=== PATIENT | male | born 1965 | race Caucasian/White ===

== ENCOUNTER 2018-04-06 10:33 | Inpatient (IN) ==
[2018-04-11 11:02] VITALS: BP 105/66
== END 2018-04-11 13:30 | disposition home or self-care (01) | DRG 378 ==
LOC: N.ED 10:33 → SUATTDRO 11:50 → N.EDINP 12:49 → N.3E 13:20
PROVIDERS: ADMIT Hospitalist; ATTEND Internal Medicine

== ENCOUNTER 2018-05-05 08:25 | Inpatient (IN) ==
[2018-05-05 09:36] LABS: Basophils % 0.4 % (0.0-0.8); Eosinophils # 0.1 10*3/uL (0.0-0.87); Hematocrit 18.8 VOL% (42.0-52.0); Immature Granulocytes % 0.4 %; Immature Granulocytes Absolute 0.01 #; Lymphocytes # 0.6 10*3/uL (1.4-4.0); Lymphocytes % 22.8 % (21.2-54.2); Mean Corpuscular HGB Conc 28.7 GM/DL (32-36); Mean Corpuscular Hemoglobin 24 PG (27-34); Mean Corpuscular Volume 82.5 FL (87-102); Mean Platelet Volume 12.7 FL (9.6-12.0); Monocytes # 0.4 10*3/uL (0.11-0.8); Monocytes % 12.9 % (1.7-12.7); Neutrophils # 1.6 10*3/uL (1.4-7.4); Neutrophils % 59.5 % (38.7-73.9); Platelet Count 84 T/CUMM (130-400); Red Blood Count 2.28 MC/CUMM (3.8-5.5); Red Cell Distribution Width 17.1 % (9.3-17.3); White Blood Count 2.7 T/CUMM (4-12)
[2018-05-05 09:41] LABS: Hemoglobin 5.4 GM/DL (14.0-18.0); INR 1.1; PT Patient Result 11.4 SECS; Partial Thromboplastin Time 25.6 SECS (0-40)
[2018-05-05 09:51] LABS: Troponin I Only < 0.015 NG/ML (0.00-0.045)
[2018-05-05 09:57] LABS: Platelet Estimate Decreased
[2018-05-05 09:57] LABS: Bilirubin,Total 0.4 MG/DL (0.2-1.0); Calcium 8.5 MG/DL (8.5-10.1); Osmolality,Calculated 282.4 MOS/KG (273-304); Potassium 3.9 MMOL/L (3.5-5.1); Total Protein 6.1 G/DL (6.4-8.3)
[2018-05-05 09:58] LABS: Anisocytosis 1+; Basophilic Stippling Slight; Polychromasia Slight
[2018-05-05] MEDS ORDERED: SODIUM CHLORIDE 0.9% 1,000 ML IV PRN ×2 (10:08→19:54)
[2018-05-05 10:26] LABS: % Iron Saturation 4.5 % (18-50)
[2018-05-05 10:28] LABS: Lactic Acid 1.6 MMOL/L (0.4-2.0)
[2018-05-05] MEDS ORDERED: DEXTROSE 50% 25 GM/50 ML VIAL IV PRN (10:43)
[2018-05-05] MEDS ORDERED: ACETAMINOPHEN 325 MG TABLET PO PRN (10:43)
[2018-05-05] MEDS ORDERED: GLUCAGON 1 MG VIAL IM PRN (10:43)
[2018-05-05] MEDS ORDERED: ONDANSETRON 4 MG/2 ML VIAL IV PRN (10:43)
[2018-05-05] MEDS ORDERED: ERGOCALCIFEROL 50,000 UNIT CAPSULE PO SCH (11:00)
[2018-05-05] MEDS ORDERED: CYANOCOBALAMIN 1000 MCG/1 ML VIAL IM SCH (11:00)
[2018-05-05] MEDS: INSULIN REGULAR 100 UNIT/ML SUBCUT SCH ×3 (13:38→20:37)
[2018-05-05] MEDS: PANTOPRAZOLE 40 MG VIAL IV SCH (15:38)
[2018-05-05 19:26] LABS: Hematocrit 19.5 VOL% (42.0-52.0)
[2018-05-05 19:32] LABS: Hemoglobin 5.8 GM/DL (14.0-18.0)
[2018-05-05] MEDS: MAGNESIUM CHLORIDE 64 MG TABLET PO SCH (20:33)
[2018-05-05] MEDS: ATORVASTATIN 20 MG TABLET PO SCH (20:33)
[2018-05-06 04:56] LABS: Basophils % 0.4 % (0.0-0.8); Eosinophils # 0.1 10*3/uL (0.0-0.87); Eosinophils % 4.3 % (0.00-10.9); Hematocrit 21.5 VOL% (42.0-52.0); Hemoglobin 6.5 GM/DL (14.0-18.0); Immature Granulocytes % 0.4 %; Immature Granulocytes Absolute 0.01 #; Lymphocytes # 0.6 10*3/uL (1.4-4.0); Lymphocytes % 22.8 % (21.2-54.2); Mean Corpuscular HGB Conc 30.2 GM/DL (32-36); Mean Corpuscular Hemoglobin 25 PG (27-34); Mean Corpuscular Volume 82.4 FL (87-102); Mean Platelet Volume 11.4 FL (9.6-12.0); Monocytes # 0.3 10*3/uL (0.11-0.8); Monocytes % 12.6 % (1.7-12.7); Neutrophils # 1.5 10*3/uL (1.4-7.4); Neutrophils % 59.5 % (38.7-73.9); Platelet Count 69 T/CUMM (130-400); Red Blood Count 2.61 MC/CUMM (3.8-5.5); Red Cell Distribution Width 16.3 % (9.3-17.3); White Blood Count 2.5 T/CUMM (4-12)
[2018-05-06 05:16] LABS: Calcium 8.4 MG/DL (8.5-10.1); Potassium 3.9 MMOL/L (3.5-5.1)
[2018-05-06 05:20] LABS: Hypochromasia 1+; Microcytosis 1+; Ovalocytes Few
[2018-05-06 05:21] LABS: Platelet Estimate Decreased
[2018-05-06] MEDS: LEVOTHYROXINE 200 MCG TABLET PO SCH (06:20)
[2018-05-06] MEDS ORDERED: LOSARTAN 50 MG TABLET PO SCH (09:00)
[2018-05-06] MEDS ORDERED: SODIUM CHLORIDE 0.9% 1,000 ML IV PRN (09:07)
[2018-05-06] MEDS: PANTOPRAZOLE 40 MG VIAL IV SCH (10:10)
[2018-05-06] MEDS ORDERED: GLUCAGON 1 MG VIAL IM PRN (10:47)
[2018-05-06] MEDS ORDERED: DEXTROSE 50% 25 GM/50 ML VIAL IV PRN (10:47)
[2018-05-06] MEDS: FEXOFENADINE 180 MG TABLET PO SCH (12:50)
[2018-05-06] MEDS: MAGNESIUM CHLORIDE 64 MG TABLET PO SCH ×2 (12:51→20:44)
[2018-05-06] MEDS: POTASSIUM CHLORIDE 20 MEQ TABLET PO SCH (12:51)
[2018-05-06] MEDS: metFORMIN 500 MG TABLET PO SCH ×2 (12:51→20:44)
[2018-05-06] MEDS: FUROSEMIDE 40 MG TABLET PO SCH (12:51)
[2018-05-06] MEDS: ALLOPURINOL 300 MG TABLET PO SCH (12:52)
[2018-05-06] MEDS: METOPROLOL SUCCINATE XL 25 MG TABLET PO SCH (12:52)
[2018-05-06] MEDS: ASCORBIC ACID 500 MG TABLET PO SCH (12:52)
[2018-05-06] MEDS: INSULIN REGULAR 100 UNIT/ML SUBCUT SCH ×4 (12:52→20:47)
[2018-05-06 19:04] LABS: Hematocrit 24.6 VOL% (42.0-52.0); Hemoglobin 7.4 GM/DL (14.0-18.0)
[2018-05-06] MEDS: ATORVASTATIN 20 MG TABLET PO SCH (20:44)
[2018-05-06] MEDS ORDERED: INSULIN GLARGINE 100 UNIT/ML SUBCUT SCH (21:00)
[2018-05-07 03:01] LABS: Hematocrit 26.4 VOL% (42.0-52.0); Hemoglobin 8.2 GM/DL (14.0-18.0)
[2018-05-07] MEDS: LEVOTHYROXINE 200 MCG TABLET PO SCH (06:03)
[2018-05-07 06:10] LABS: Basophils % 0.7 % (0.0-0.8); Eosinophils # 0.1 10*3/uL (0.0-0.87); Eosinophils % 4.8 % (0.00-10.9); Hematocrit 26.9 VOL% (42.0-52.0); Hemoglobin 8.2 GM/DL (14.0-18.0); Lymphocytes # 0.6 10*3/uL (1.4-4.0); Lymphocytes % 21.4 % (21.2-54.2); Mean Corpuscular HGB Conc 30.5 GM/DL (32-36); Mean Corpuscular Hemoglobin 26 PG (27-34); Mean Corpuscular Volume 84.1 FL (87-102); Monocytes # 0.4 10*3/uL (0.11-0.8); Monocytes % 13.3 % (1.7-12.7); Neutrophils # 1.8 10*3/uL (1.4-7.4); Neutrophils % 59.8 % (38.7-73.9); Platelet Count 66 T/CUMM (130-400); Red Cell Distribution Width 16.2 % (9.3-17.3); White Blood Count 2.9 T/CUMM (4-12)
[2018-05-07 06:29] LABS: Hypochromasia 1+; Ovalocytes Slight; Platelet Estimate Decreased
[2018-05-07 06:30] LABS: Microcytosis Slight
[2018-05-07 06:36] LABS: Calcium 8.4 MG/DL (8.5-10.1); Osmolality,Calculated 283.1 MOS/KG (273-304)
[2018-05-07] MEDS: INSULIN REGULAR 100 UNIT/ML SUBCUT SCH ×4 (09:56→22:05)
[2018-05-07] MEDS ORDERED: LOSARTAN 25 MG TABLET PO SCH (11:30)
[2018-05-07] MEDS: FUROSEMIDE 40 MG TABLET PO SCH (11:39)
[2018-05-07] MEDS: ASCORBIC ACID 500 MG TABLET PO SCH (11:40)
[2018-05-07] MEDS: MAGNESIUM CHLORIDE 64 MG TABLET PO SCH ×2 (11:41→22:12)
[2018-05-07] MEDS: POTASSIUM CHLORIDE 20 MEQ TABLET PO SCH (11:41)
[2018-05-07] MEDS: METOPROLOL SUCCINATE XL 25 MG TABLET PO SCH (11:41)
[2018-05-07] MEDS: FEXOFENADINE 180 MG TABLET PO SCH (11:41)
[2018-05-07] MEDS: ALLOPURINOL 300 MG TABLET PO SCH (11:41)
[2018-05-07] MEDS: PANTOPRAZOLE 40 MG VIAL IV SCH (11:46)
[2018-05-07] MEDS: metFORMIN 500 MG TABLET PO SCH ×2 (11:46→22:12)
[2018-05-07 12:51] LABS: Hematocrit 31.7 VOL% (42.0-52.0); Hemoglobin 9.9 GM/DL (14.0-18.0)
[2018-05-07] MEDS ORDERED: LIOTHYRONINE SODIUM 5 MCG PO SCH (21:00)
[2018-05-07] MEDS ORDERED: INSULIN DEGLUDEC 120 UNIT SUBCUT SCH (21:00)
[2018-05-07] MEDS: ATORVASTATIN 20 MG TABLET PO SCH (22:13)
[2018-05-08] MEDS: LEVOTHYROXINE 200 MCG TABLET PO SCH (06:06)
[2018-05-08] MEDS: INSULIN REGULAR 100 UNIT/ML SUBCUT SCH ×2 (08:54→13:01)
[2018-05-08] MEDS: metFORMIN 500 MG TABLET PO SCH (08:54)
[2018-05-08] MEDS: MAGNESIUM CHLORIDE 64 MG TABLET PO SCH (08:54)
[2018-05-08] MEDS: FUROSEMIDE 40 MG TABLET PO SCH (08:55)
[2018-05-08] MEDS: ASCORBIC ACID 500 MG TABLET PO SCH (08:55)
[2018-05-08] MEDS: FEXOFENADINE 180 MG TABLET PO SCH (08:55)
[2018-05-08] MEDS: POTASSIUM CHLORIDE 20 MEQ TABLET PO SCH (08:58)
[2018-05-08] MEDS: ALLOPURINOL 300 MG TABLET PO SCH (08:58)
[2018-05-08] MEDS: PANTOPRAZOLE 40 MG VIAL IV SCH (08:58)
[2018-05-08 11:48] VITALS: BP 116/55
== END 2018-05-08 12:30 | disposition home or self-care (01) | DRG 378 ==
LOC: N.ED 08:25 → N.2E 10:43 → SUATTDRO 10:43 → N.2E 12:36
PROVIDERS: ADMIT Hospitalist; ATTEND Internal Medicine

== ENCOUNTER 2018-05-27 02:18 | Inpatient (IN) ==
[2018-05-27 03:20] LABS: Basophils % 0.4 % (0.0-0.8); Eosinophils # 0.1 10*3/uL (0.0-0.87); Eosinophils % 5.1 % (0.00-10.9); Hematocrit 22.7 VOL% (42.0-52.0); Lymphocytes # 0.6 10*3/uL (1.4-4.0); Mean Corpuscular HGB Conc 30.8 GM/DL (32-36); Mean Corpuscular Hemoglobin 26 PG (27-34); Mean Corpuscular Volume 82.8 FL (87-102); Monocytes # 0.4 10*3/uL (0.11-0.8); Monocytes % 14.5 % (1.7-12.7); Neutrophils # 1.5 10*3/uL (1.4-7.4); Red Blood Count 2.74 MC/CUMM (3.8-5.5); Red Cell Distribution Width 18.4 % (9.3-17.3); White Blood Count 2.6 T/CUMM (4-12)
[2018-05-27 03:22] LABS: Platelet Count 82 T/CUMM (130-400)
[2018-05-27] MEDS ORDERED: PANTOPRAZOLE INJ 80 MG in SODIUM CHLORIDE 0.9% 100 ML IV ONE (03:31)
[2018-05-27 03:37] LABS: Albumin 3.3 G/DL (3.4-5.0); Bilirubin,Total 0.6 MG/DL (0.2-1.0); Calcium 8.5 MG/DL (8.5-10.1); Total Protein 5.9 G/DL (6.4-8.3)
[2018-05-27] MEDS ORDERED: PANTOPRAZOLE 40 MG VIAL IV ONE (04:32)
[2018-05-27 04:47] LABS: Hypochromasia 1+; Microcytosis Slight; Ovalocytes Slight; Platelet Estimate Decreased
[2018-05-27] MEDS: PANTOPRAZOLE INJ 200 MG in SODIUM CHLORIDE 0.9% 250 ML IV SCH (05:38)
[2018-05-27] MEDS ORDERED: GLUCAGON 1 MG VIAL IM PRN (06:05)
[2018-05-27] MEDS ORDERED: ONDANSETRON 4 MG/2 ML VIAL IV PRN (06:05)
[2018-05-27] MEDS ORDERED: DEXTROSE 50% 25 GM/50 ML VIAL IV PRN (06:05)
[2018-05-27] MEDS ORDERED: SODIUM CHLORIDE 0.9% 1,000 ML IV PRN ×2 (06:05→15:47)
[2018-05-27] MEDS: INSULIN LISPRO 100 UNIT/ML SUBCUT SCH ×4 (08:37→20:54)
[2018-05-27 15:22] LABS: Hemoglobin 7.4 GM/DL (14.0-18.0)
[2018-05-27] MEDS: ATORVASTATIN 20 MG TABLET PO SCH (20:53)
[2018-05-27] MEDS ORDERED: LIOTHYRONINE SODIUM 5 MCG PO SCH (21:00)
[2018-05-28] MEDS: PANTOPRAZOLE INJ 200 MG in SODIUM CHLORIDE 0.9% 250 ML IV SCH (04:26)
[2018-05-28] MEDS: MAGNESIUM CHLORIDE 64 MG TABLET PO SCH ×3 (04:26→21:59)
[2018-05-28 04:42] LABS: Basophils % 0.3 % (0.0-0.8); Eosinophils # 0.2 10*3/uL (0.0-0.87); Eosinophils % 5.7 % (0.00-10.9); Hematocrit 27.1 VOL% (42.0-52.0); Hemoglobin 8.4 GM/DL (14.0-18.0); Immature Granulocytes % 0.3 %; Immature Granulocytes Absolute 0.01 #; Lymphocytes # 0.7 10*3/uL (1.4-4.0); Lymphocytes % 21.9 % (21.2-54.2); Mean Corpuscular Hemoglobin 26 PG (27-34); Mean Corpuscular Volume 84.2 FL (87-102); Mean Platelet Volume 11.4 FL (9.6-12.0); Monocytes # 0.4 10*3/uL (0.11-0.8); Monocytes % 14.1 % (1.7-12.7); Neutrophils # 1.7 10*3/uL (1.4-7.4); Neutrophils % 57.7 % (38.7-73.9); Red Blood Count 3.22 MC/CUMM (3.8-5.5); Red Cell Distribution Width 17.4 % (9.3-17.3)
[2018-05-28 04:50] LABS: Platelet Count 62 T/CUMM (130-400)
[2018-05-28 05:18] LABS: Calcium 8.5 MG/DL (8.5-10.1); Osmolality,Calculated 287.7 MOS/KG (273-304); Potassium 3.9 MMOL/L (3.5-5.1); Thyroid Stimulating Hormone 1.2 uIU/ml (0.358-3.74)
[2018-05-28 05:23] LABS: Hypochromasia 1+; Microcytosis 1+; Ovalocytes Slight; Platelet Estimate Decreased
[2018-05-28] MEDS ORDERED: ERGOCALCIFEROL 50,000 UNIT CAPSULE PO SCH (09:00)
[2018-05-28] MEDS: INSULIN LISPRO 100 UNIT/ML SUBCUT SCH ×4 (09:43→22:00)
[2018-05-28] MEDS ORDERED: PROPOFOL 200 MG/20 ML VIAL IV ONE (10:00)
[2018-05-28] MEDS ORDERED: LIDOCAINE 2% 5 ML VIAL ONE (10:00)
[2018-05-28] MEDS: LEVOTHYROXINE 200 MCG TABLET PO SCH (14:03)
[2018-05-28] MEDS: ASCORBIC ACID 500 MG TABLET PO SCH (14:03)
[2018-05-28] MEDS: ALLOPURINOL 300 MG TABLET PO SCH (14:03)
[2018-05-28] MEDS: POTASSIUM CHLORIDE 20 MEQ TABLET PO SCH (14:03)
[2018-05-28] MEDS: FERROUS SULFATE 325 MG TABLET PO SCH (14:04)
[2018-05-28] MEDS: FUROSEMIDE 40 MG TABLET PO SCH (14:05)
[2018-05-28] MEDS ORDERED: ACETAMINOPHEN 325 MG TABLET PO PRN (14:10)
[2018-05-28 15:22] LABS: Hemoglobin 9.3 GM/DL (14.0-18.0)
[2018-05-28] MEDS: ATORVASTATIN 20 MG TABLET PO SCH (21:59)
[2018-05-29 06:45] LABS: Basophils % 0.3 % (0.0-0.8); Eosinophils # 0.1 10*3/uL (0.0-0.87); Eosinophils % 4.1 % (0.00-10.9); Hematocrit 27.1 VOL% (42.0-52.0); Hemoglobin 8.3 GM/DL (14.0-18.0); Immature Granulocytes % 0.3 %; Immature Granulocytes Absolute 0.01 #; Lymphocytes # 0.5 10*3/uL (1.4-4.0); Lymphocytes % 16.1 % (21.2-54.2); Mean Corpuscular HGB Conc 30.6 GM/DL (32-36); Mean Corpuscular Hemoglobin 26 PG (27-34); Mean Corpuscular Volume 86.3 FL (87-102); Mean Platelet Volume 11.2 FL (9.6-12.0); Monocytes # 0.5 10*3/uL (0.11-0.8); Monocytes % 14.2 % (1.7-12.7); Neutrophils # 2.1 10*3/uL (1.4-7.4); Platelet Count 67 T/CUMM (130-400); Red Blood Count 3.14 MC/CUMM (3.8-5.5); Red Cell Distribution Width 17.6 % (9.3-17.3); White Blood Count 3.2 T/CUMM (4-12)
[2018-05-29 07:13] LABS: Hypochromasia 1+; Platelet Estimate Decreased
[2018-05-29 07:14] LABS: Microcytosis 1+
[2018-05-29] MEDS: POTASSIUM CHLORIDE 20 MEQ TABLET PO SCH (09:27)
[2018-05-29] MEDS: ASCORBIC ACID 500 MG TABLET PO SCH (09:27)
[2018-05-29] MEDS: FUROSEMIDE 40 MG TABLET PO SCH (09:28)
[2018-05-29] MEDS: ALLOPURINOL 300 MG TABLET PO SCH (09:28)
[2018-05-29] MEDS: LEVOTHYROXINE 200 MCG TABLET PO SCH (09:28)
[2018-05-29] MEDS: FERROUS SULFATE 325 MG TABLET PO SCH (09:28)
[2018-05-29] MEDS: MAGNESIUM CHLORIDE 64 MG TABLET PO SCH (09:28)
[2018-05-29] MEDS: INSULIN LISPRO 100 UNIT/ML SUBCUT SCH ×2 (11:16→11:17)
[2018-05-29 12:52] VITALS: BP 125/68
[2018-06-03] MEDS ORDERED: CYANOCOBALAMIN 1000 MCG/1 ML VIAL IM SCH (09:00)
== END 2018-05-29 13:48 | disposition home or self-care (01) | DRG 378 ==
LOC: N.ED 02:18 → N.EDINP 05:25 → N.5E 05:47
PROVIDERS: ADMIT Internal Medicine; ATTEND Internal Medicine

== ENCOUNTER 2018-06-22 10:36 | Inpatient (IN) ==
[2018-06-22 11:50] LABS: Basophils % 0.3 % (0.0-0.8); Eosinophils # 0.1 10*3/uL (0.0-0.87); Eosinophils % 3.8 % (0.00-10.9); Hematocrit 26.3 VOL% (42.0-52.0); Immature Granulocytes % 0.3 %; Immature Granulocytes Absolute 0.01 #; Lymphocytes # 0.5 10*3/uL (1.4-4.0); Lymphocytes % 17.2 % (21.2-54.2); Mean Corpuscular HGB Conc 30.4 GM/DL (32-36); Mean Corpuscular Hemoglobin 26 PG (27-34); Mean Corpuscular Volume 84.6 FL (87-102); Mean Platelet Volume 11.5 FL (9.6-12.0); Monocytes # 0.4 10*3/uL (0.11-0.8); Monocytes % 14.8 % (1.7-12.7); Neutrophils # 1.8 10*3/uL (1.4-7.4); Neutrophils % 63.6 % (38.7-73.9); Red Blood Count 3.11 MC/CUMM (3.8-5.5); Red Cell Distribution Width 17.2 % (9.3-17.3); White Blood Count 2.9 T/CUMM (4-12)
[2018-06-22 11:52] LABS: Platelet Count 67 T/CUMM (130-400)
[2018-06-22 12:00] LABS: INR 1.1; PT Patient Result 11.3 SECS
[2018-06-22 12:18] LABS: Hypochromasia 1+
[2018-06-22 12:19] LABS: Platelet Estimate Decreased
[2018-06-22 12:20] LABS: Albumin 3.3 G/DL (3.4-5.0); Bilirubin,Total 0.5 MG/DL (0.2-1.0); Calcium 8.2 MG/DL (8.5-10.1); Potassium 4.3 MMOL/L (3.5-5.1); Total Protein 6.5 G/DL (6.4-8.3)
[2018-06-22] MEDS ORDERED: GLUCAGON 1 MG VIAL IM PRN (15:01)
[2018-06-22] MEDS ORDERED: DEXTROSE 50% 25 GM/50 ML VIAL IV PRN (15:01)
[2018-06-22] MEDS: INSULIN LISPRO 100 UNIT/ML SUBCUT SCH ×2 (16:16→22:41)
[2018-06-22 19:36] LABS: Apearance,Urine CLEAR (Clear); Bilirubin,Urine Negative (Negative); Blood, Urine Negative (Negative); Glucose,Urine (UA) Negative (Negative); Ketones,Urine Negative (Negative); Mucus,Urine Occasional /LPF (Occasional); Nitrite,Urine Negative (Negative); Protein,Urine Negative; RBC,Urine <1 /HPF (0-4); Urine Color Yellow (Yellow); Urine Specific Gravity 1.016 (1.001-1.035); Urine Urobilinogen < 2.0 EU/DL (0.2-1.0); WBC,Urine <1 /HPF (0-6)
[2018-06-23 05:21] LABS: Basophils % 0.9 % (0.0-0.8); Eosinophils # 0.1 10*3/uL (0.0-0.87); Eosinophils % 5.9 % (0.00-10.9); Hematocrit 25.8 VOL% (42.0-52.0); Hemoglobin 7.7 GM/DL (14.0-18.0); Immature Granulocytes % 0.5 %; Immature Granulocytes Absolute 0.01 #; Lymphocytes # 0.5 10*3/uL (1.4-4.0); Mean Corpuscular HGB Conc 29.8 GM/DL (32-36); Mean Corpuscular Hemoglobin 26 PG (27-34); Mean Corpuscular Volume 85.7 FL (87-102); Mean Platelet Volume 11.5 FL (9.6-12.0); Monocytes # 0.3 10*3/uL (0.11-0.8); Monocytes % 12.3 % (1.7-12.7); Neutrophils # 1.3 10*3/uL (1.4-7.4); Neutrophils % 59.4 % (38.7-73.9); Platelet Count 61 T/CUMM (130-400); Red Blood Count 3.01 MC/CUMM (3.8-5.5); Red Cell Distribution Width 17.4 % (9.3-17.3); White Blood Count 2.2 T/CUMM (4-12)
[2018-06-23 05:42] LABS: Calcium 8.4 MG/DL (8.5-10.1); Osmolality,Calculated 287.8 MOS/KG (273-304); Potassium 3.9 MMOL/L (3.5-5.1)
[2018-06-23 05:46] LABS: Band Neutrophils 4 % (0-10); Eosinophils 6 % (0-10); Hypochromasia 2+; Lymphocytes 23 % (20-55); Metamyelocytes 1 %; Platelet Estimate Decreased; Segmented Neutrophils 58 % (50-85); Total Cells Counted 100
[2018-06-23] MEDS: INSULIN LISPRO 100 UNIT/ML SUBCUT SCH ×4 (07:30→20:40)
[2018-06-23] MEDS ORDERED: SODIUM CHLORIDE 0.9% 1,000 ML IV PRN (07:49)
[2018-06-23] MEDS ORDERED: ACETAMINOPHEN 325 MG TABLET PO PRN (09:28)
[2018-06-23] MEDS ORDERED: ERGOCALCIFEROL 50,000 UNIT CAPSULE PO SCH (09:30)
[2018-06-23] MEDS ORDERED: LIOTHYRONINE SODIUM 5 MCG PO SCH (09:30)
[2018-06-23] MEDS: ALLOPURINOL 300 MG TABLET PO SCH (10:58)
[2018-06-23] MEDS: LEVOTHYROXINE 200 MCG TABLET PO SCH (11:00)
[2018-06-23] MEDS: ASCORBIC ACID 500 MG TABLET PO SCH (11:00)
[2018-06-23] MEDS: FERROUS SULFATE 325 MG TABLET PO SCH (11:01)
[2018-06-23] MEDS: POTASSIUM CHLORIDE 20 MEQ TABLET PO SCH (11:01)
[2018-06-23] MEDS: FUROSEMIDE 40 MG TABLET PO SCH (16:32)
[2018-06-23] MEDS: PANTOPRAZOLE 40 MG VIAL IV SCH ×2 (16:32→20:41)
[2018-06-23 18:05] LABS: Hematocrit 28.7 VOL% (42.0-52.0); Hemoglobin 8.8 GM/DL (14.0-18.0)
[2018-06-23] MEDS: MAGNESIUM CHLORIDE 64 MG TABLET PO SCH (20:39)
[2018-06-23] MEDS ORDERED: ATORVASTATIN 20 MG TABLET PO SCH (21:00)
[2018-06-24 03:10] LABS: Basophils % 0.4 % (0.0-0.8); Eosinophils # 0.2 10*3/uL (0.0-0.87); Eosinophils % 6.4 % (0.00-10.9); Hematocrit 27.7 VOL% (42.0-52.0); Hemoglobin 8.6 GM/DL (14.0-18.0); Immature Granulocytes % 1.9 %; Immature Granulocytes Absolute 0.05 #; Lymphocytes # 0.6 10*3/uL (1.4-4.0); Lymphocytes % 22.6 % (21.2-54.2); Mean Corpuscular Hemoglobin 26 PG (27-34); Mean Corpuscular Volume 83.7 FL (87-102); Mean Platelet Volume 11.1 FL (9.6-12.0); Monocytes # 0.4 10*3/uL (0.11-0.8); Monocytes % 14.7 % (1.7-12.7); Neutrophils # 1.4 10*3/uL (1.4-7.4); Red Blood Count 3.31 MC/CUMM (3.8-5.5); White Blood Count 2.7 T/CUMM (4-12)
[2018-06-24 03:14] LABS: Platelet Count 69 T/CUMM (130-400)
[2018-06-24 03:17] LABS: INR 1.1; PT Patient Result 11.3 SECS
[2018-06-24 03:24] LABS: Calcium 8.1 MG/DL (8.5-10.1); Potassium 3.5 MMOL/L (3.5-5.1)
[2018-06-24 03:52] LABS: Hypochromasia 1+; Microcytosis 1+; Ovalocytes 1+; Platelet Estimate Decreased
[2018-06-24] MEDS: INSULIN LISPRO 100 UNIT/ML SUBCUT SCH ×3 (07:55→16:44)
[2018-06-24] MEDS: PANTOPRAZOLE 40 MG VIAL IV SCH (09:45)
[2018-06-24] MEDS ORDERED: PROPOFOL 200 MG/20 ML VIAL IV ONE (10:00)
[2018-06-24] MEDS ORDERED: LIDOCAINE 100 MG/5 ML SYRINGE ONE (10:00)
[2018-06-24] MEDS ORDERED: GLUCAGON 1 MG VIAL IM PRN (14:05)
[2018-06-24] MEDS ORDERED: DEXTROSE 50% 25 GM/50 ML VIAL IV PRN (14:05)
[2018-06-24] MEDS: LEVOTHYROXINE 200 MCG TABLET PO SCH (14:08)
[2018-06-24] MEDS: FUROSEMIDE 40 MG TABLET PO SCH (14:08)
[2018-06-24] MEDS: POTASSIUM CHLORIDE 20 MEQ TABLET PO SCH (14:08)
[2018-06-24] MEDS: FERROUS SULFATE 325 MG TABLET PO SCH (14:08)
[2018-06-24] MEDS: MAGNESIUM CHLORIDE 64 MG TABLET PO SCH (14:08)
[2018-06-24] MEDS: ALLOPURINOL 300 MG TABLET PO SCH (14:08)
[2018-06-24] MEDS: ASCORBIC ACID 500 MG TABLET PO SCH (14:08)
[2018-06-24] MEDS ORDERED: PNEUMOCOCCAL VACCINE (23 VALENT) 0.5 ML VIAL IM ONE (15:00)
[2018-06-24] MEDS ORDERED: HEPATITIS B PEDIATRIC (MSMed) VACCINE 0.5 ML/5 MCG VIAL IM ONE (15:00)
[2018-06-24 15:04] VITALS: BP 125/76
== END 2018-06-24 16:44 | disposition home or self-care (01) | DRG 378 ==
LOC: N.ED 10:36 → N.EDINP 13:46 → SUATTDRO 13:46 → N.2E 14:26
PROVIDERS: ADMIT Internal Medicine; ATTEND Internal Medicine

== ENCOUNTER 2018-07-29 09:33 | Inpatient (IN) ==
[2018-07-29] MEDS ORDERED: ONDANSETRON 4 MG/2 ML VIAL IV STA (09:56)
[2018-07-29] MEDS ORDERED: PANTOPRAZOLE 40 MG VIAL IV STA (09:56)
[2018-07-29 10:07] LABS: Basophils % 0.3 % (0.0-0.8); Eosinophils # 0.7 10*3/uL (0.0-0.87); Eosinophils % 17.8 % (0.00-10.9); Hematocrit 25.6 VOL% (42.0-52.0); Hemoglobin 7.5 GM/DL (14.0-18.0); Immature Granulocytes % 0.8 %; Immature Granulocytes Absolute 0.03 #; Lymphocytes # 0.6 10*3/uL (1.4-4.0); Lymphocytes % 15.9 % (21.2-54.2); Mean Corpuscular HGB Conc 29.3 GM/DL (32-36); Mean Corpuscular Hemoglobin 27 PG (27-34); Mean Corpuscular Volume 92.8 FL (87-102); Mean Platelet Volume 11.2 FL (9.6-12.0); Monocytes # 0.4 10*3/uL (0.11-0.8); Neutrophils # 2.1 10*3/uL (1.4-7.4); Neutrophils % 55.2 % (38.7-73.9); Red Blood Count 2.76 MC/CUMM (3.8-5.5); Red Cell Distribution Width 20.1 % (9.3-17.3); White Blood Count 3.7 T/CUMM (4-12)
[2018-07-29 10:08] LABS: Platelet Count 70 T/CUMM (130-400)
[2018-07-29 10:15] LABS: PT Patient Result 10.9 SECS
[2018-07-29 10:43] LABS: Albumin 3.2 G/DL (3.4-5.0); Bilirubin,Total 0.5 MG/DL (0.2-1.0); Calcium 8.1 MG/DL (8.5-10.1); Potassium 4.2 MMOL/L (3.5-5.1); Total Protein 6.2 G/DL (6.4-8.3)
[2018-07-29 11:02] LABS: Band Neutrophils 1 % (0-10); Eosinophils 15 % (0-10); Hypochromasia 1+; Lymphocytes 22 % (20-55); Microcytosis Slight; Ovalocytes Slight; Platelet Estimate Decreased; Segmented Neutrophils 54 % (50-85); Total Cells Counted 100
[2018-07-29] MEDS ORDERED: diphenhydrAMINE 50 MG/1 ML VIAL IV PRN (11:30)
[2018-07-29] MEDS ORDERED: SODIUM CHLORIDE 0.9% 1,000 ML IV PRN (11:30)
[2018-07-29] MEDS ORDERED: ACETAMINOPHEN 325 MG TABLET PO PRN (11:30)
[2018-07-29] MEDS ORDERED: MAGNESIUM SULF RIDER 2 GM in PREMIX 1 EACH IV PRN (11:31)
[2018-07-29] MEDS ORDERED: MAGNESIUM SULF RIDER 4 GM in PREMIX 1 EACH IV PRN (11:31)
[2018-07-29] MEDS ORDERED: POTASSIUM CHLORIDE RIDER 10 MEQ in PREMIX 1 EACH IV PRN (11:31)
[2018-07-29 11:59] LABS: Risk Ratio 3.32; VLDL CHOLESTEROL 41.6 MG/DL
[2018-07-29] MEDS ORDERED: PANTOPRAZOLE INJ 200 MG in SODIUM CHLORIDE 0.9% 250 ML IV SCH (12:00)
[2018-07-29 13:09] LABS: Apearance,Urine CLEAR (Clear); Bilirubin,Urine Negative (Negative); Blood, Urine Negative (Negative); Glucose,Urine (UA) Negative (Negative); Ketones,Urine Negative (Negative); Mucus,Urine Occasional /LPF (Occasional); Nitrite,Urine Negative (Negative); Protein,Urine Negative; Squamous Epithelial Cell,Urine Occasional /HPF (0-10); Urine Color Yellow (Yellow); Urine Specific Gravity 1.014 (1.001-1.035); WBC,Urine <1 /HPF (0-6)
[2018-07-29] MEDS ORDERED: DEXTROSE 50% 25 GM/50 ML VIAL IV PRN (15:49)
[2018-07-29] MEDS ORDERED: GLUCAGON 1 MG VIAL IM PRN (15:49)
[2018-07-29] MEDS ORDERED: FUROSEMIDE 40 MG/4 ML VIAL IV ONE (16:00)
[2018-07-29] MEDS: MAGNESIUM CHLORIDE 64 MG TABLET PO SCH (20:38)
[2018-07-29] MEDS: ATORVASTATIN 20 MG TABLET PO SCH (20:38)
[2018-07-29] MEDS ORDERED: LIOTHYRONINE SODIUM 5 MCG PO SCH (21:00)
[2018-07-29] MEDS ORDERED: INSULIN DEGLUDEC 110 UNIT SUBCUT SCH (21:00)
[2018-07-30 05:26] LABS: Basophils % 0.3 % (0.0-0.8); Eosinophils # 0.8 10*3/uL (0.0-0.87); Eosinophils % 21.3 % (0.00-10.9); Hematocrit 25.5 VOL% (42.0-52.0); Hemoglobin 7.6 GM/DL (14.0-18.0); Immature Granulocytes % 0.6 %; Immature Granulocytes Absolute 0.02 #; Lymphocytes # 0.6 10*3/uL (1.4-4.0); Lymphocytes % 18.2 % (21.2-54.2); Mean Corpuscular HGB Conc 29.8 GM/DL (32-36); Mean Corpuscular Hemoglobin 27 PG (27-34); Mean Corpuscular Volume 91.7 FL (87-102); Mean Platelet Volume 11.8 FL (9.6-12.0); Monocytes # 0.4 10*3/uL (0.11-0.8); Monocytes % 11.1 % (1.7-12.7); Neutrophils # 1.7 10*3/uL (1.4-7.4); Neutrophils % 48.5 % (38.7-73.9); Red Blood Count 2.78 MC/CUMM (3.8-5.5); White Blood Count 3.5 T/CUMM (4-12)
[2018-07-30 05:29] LABS: Platelet Count 67 T/CUMM (130-400)
[2018-07-30 05:52] LABS: Albumin 2.9 G/DL (3.4-5.0); Bilirubin,Total 0.5 MG/DL (0.2-1.0); Calcium 7.9 MG/DL (8.5-10.1); Osmolality,Calculated 283.1 MOS/KG (273-304); Potassium 3.5 MMOL/L (3.5-5.1); Total Protein 5.9 G/DL (6.4-8.3)
[2018-07-30 05:55] LABS: Eosinophils 24 % (0-10); Hypochromasia 1+; Lymphocytes 10 % (20-55); Ovalocytes Slight; Platelet Estimate Decreased; Segmented Neutrophils 58 % (50-85); Total Cells Counted 100
[2018-07-30 05:56] LABS: Microcytosis Slight
[2018-07-30] MEDS: LEVOTHYROXINE 200 MCG TABLET PO SCH (06:01)
[2018-07-30] MEDS ORDERED: SODIUM CHLORIDE 0.9% 1,000 ML IV PRN (07:15)
[2018-07-30] MEDS ORDERED: FUROSEMIDE 20 MG/2 ML VIAL IV PRN (07:15)
[2018-07-30] MEDS ORDERED: ACETAMINOPHEN 325 MG TABLET PO PRN (07:15)
[2018-07-30] MEDS ORDERED: diphenhydrAMINE 50 MG/1 ML VIAL IV PRN (07:15)
[2018-07-30] MEDS ORDERED: PANTOPRAZOLE 40 MG TABLET PO SCH (09:00)
[2018-07-30] MEDS: PANTOPRAZOLE 40 MG VIAL IV SCH (09:17)
[2018-07-30] MEDS: ALLOPURINOL 300 MG TABLET PO SCH (09:20)
[2018-07-30] MEDS: FUROSEMIDE 40 MG TABLET PO SCH (09:20)
[2018-07-30] MEDS: POTASSIUM CHLORIDE 20 MEQ TABLET PO SCH ×2 (09:20→21:46)
[2018-07-30] MEDS: MAGNESIUM CHLORIDE 64 MG TABLET PO SCH ×2 (09:20→21:45)
[2018-07-30] MEDS: CHOLECALCIFEROL 1,000 UNIT TABLET PO SCH (09:20)
[2018-07-30] MEDS: ASCORBIC ACID 500 MG TABLET PO SCH (11:05)
[2018-07-30 13:37] LABS: % Iron Saturation 12.7 % (18-50); Ferritin 81.6 ng/ml (26-388)
[2018-07-30] MEDS ORDERED: POTASSIUM PHOSPHATE 15 MMOL in SODIUM CHLORIDE 0.9% 100 ML IV ONE (14:00)
[2018-07-30] MEDS ORDERED: LIDOCAINE 100 MG/5 ML SYRINGE ONE (14:23)
[2018-07-30] MEDS ORDERED: PROPOFOL 200 MG/20 ML VIAL IV ONE (14:23)
[2018-07-30] MEDS ORDERED: FUROSEMIDE 20 MG/2 ML VIAL IV ONE (16:15)
[2018-07-30] MEDS: ATORVASTATIN 20 MG TABLET PO SCH (21:45)
[2018-07-31 05:54] LABS: Basophils % 0.4 % (0.0-0.8); Eosinophils # 0.9 10*3/uL (0.0-0.87); Eosinophils % 19.8 % (0.00-10.9); Hematocrit 32.3 VOL% (42.0-52.0); Immature Granulocytes % 0.6 %; Immature Granulocytes Absolute 0.03 #; Lymphocytes # 0.8 10*3/uL (1.4-4.0); Lymphocytes % 17.1 % (21.2-54.2); Mean Corpuscular Hemoglobin 29 PG (27-34); Mean Platelet Volume 10.4 FL (9.6-12.0); Monocytes # 0.5 10*3/uL (0.11-0.8); Monocytes % 10.2 % (1.7-12.7); Neutrophils # 2.4 10*3/uL (1.4-7.4); Neutrophils % 51.9 % (38.7-73.9); Platelet Count 73 T/CUMM (130-400); Red Cell Distribution Width 19.8 % (9.3-17.3)
[2018-07-31 05:58] LABS: Red Blood Count 3.51 MC/CUMM (3.8-5.5); White Blood Count 4.7 T/CUMM (4-12)
[2018-07-31] MEDS: LEVOTHYROXINE 200 MCG TABLET PO SCH (06:27)
[2018-07-31 06:52] LABS: Albumin 3.5 G/DL (3.4-5.0); Bilirubin,Total 1.13 MG/DL (0.2-1.0); Calcium 8.4 MG/DL (8.5-10.1); Osmolality,Calculated 283.3 MOS/KG (273-304); Potassium 3.8 MMOL/L (3.5-5.1); Total Protein 6.8 G/DL (6.4-8.3)
[2018-07-31 06:56] LABS: Eosinophils 26 % (0-10); Hypochromasia 1+; Lymphocytes 13 % (20-55); Microcytosis Slight; Ovalocytes Slight; Platelet Estimate Decreased; Segmented Neutrophils 52 % (50-85); Total Cells Counted 100
[2018-07-31] MEDS: ALLOPURINOL 300 MG TABLET PO SCH (08:39)
[2018-07-31] MEDS: MAGNESIUM CHLORIDE 64 MG TABLET PO SCH (08:39)
[2018-07-31] MEDS: PANTOPRAZOLE 40 MG VIAL IV SCH (08:39)
[2018-07-31] MEDS: POTASSIUM CHLORIDE 20 MEQ TABLET PO SCH (08:40)
[2018-07-31] MEDS: CHOLECALCIFEROL 1,000 UNIT TABLET PO SCH (08:40)
[2018-07-31] MEDS: ASCORBIC ACID 500 MG TABLET PO SCH (08:40)
[2018-07-31] MEDS: FUROSEMIDE 40 MG TABLET PO SCH (08:40)
[2018-07-31 12:08] VITALS: BP 131/74
[2018-08-01] MEDS ORDERED: CYANOCOBALAMIN 1000 MCG/1 ML VIAL IM SCH (09:00)
== END 2018-07-31 12:22 | disposition home or self-care (01) | DRG 378 ==
LOC: N.ED 09:33 → N.EDINP 13:15 → N.2E 14:30
PROVIDERS: ADMIT Internal Medicine; ATTEND Internal Medicine

== ENCOUNTER 2018-08-28 17:39 | Inpatient (IN) ==
[2018-08-28] MEDS ORDERED: ONDANSETRON 4 MG/2 ML VIAL IV STA (19:29)
[2018-08-28] MEDS ORDERED: METOCLOPRAMIDE 10 MG/2 ML VIAL IV STA (19:29)
[2018-08-28] MEDS ORDERED: SODIUM CHLORIDE 0.9% 500 ML IV STA (19:29)
[2018-08-28] MEDS ORDERED: PANTOPRAZOLE 40 MG VIAL IV STA (19:29)
[2018-08-28 20:31] LABS: Alanine Aminotransferase 36 U/L (16-61); Alkaline Phosphatase 105 U/L (45-117); Aspartate Amino Transferase 30 U/L (0-37); Blood Urea Nitrogen 22 MG/DL (7-18); Calcium 7.9 MG/DL (8.5-10.1); Glucose 248 MG/DL (74-106); Osmolality,Calculated 293.1 MOS/KG (273-304); Potassium 4.1 MMOL/L (3.5-5.1); Sodium 142 MMOL/L (136-145); Total Protein 6.2 G/DL (6.4-8.3); Troponin I < 0.015 NG/ML (0.00-0.045)
[2018-08-28 20:34] LABS: Basophils % 0.4 % (0.0-0.8); Eosinophils # 0.4 10*3/uL (0.0-0.87); Eosinophils % 14.1 % (0.00-10.9); Hematocrit 21.8 VOL% (42.0-52.0); Hemoglobin 6.6 GM/DL (14.0-18.0); Immature Granulocytes % 0.4 %; Immature Granulocytes Absolute 0.01 #; Lymphocytes # 0.6 10*3/uL (1.4-4.0); Mean Corpuscular HGB Conc 30.3 GM/DL (32-36); Mean Corpuscular Hemoglobin 27 PG (27-34); Mean Corpuscular Volume 90.1 FL (87-102); Mean Platelet Volume 12.6 FL (9.6-12.0); Monocytes # 0.3 10*3/uL (0.11-0.8); Monocytes % 12.5 % (1.7-12.7); Neutrophils # 1.3 10*3/uL (1.4-7.4); Neutrophils % 49.6 % (38.7-73.9); Platelet Count 67 T/CUMM (130-400); Red Blood Count 2.42 MC/CUMM (3.8-5.5); Red Cell Distribution Width 18.2 % (9.3-17.3); White Blood Count 2.6 T/CUMM (4-12)
[2018-08-28 20:42] LABS: PT Patient Result 11.3 SECS; Partial Thromboplastin Time 21.2 SECS (0-40)
[2018-08-28 21:04] LABS: Band Neutrophils 7 % (0-10); Eosinophils 14 % (0-10); Lymphocytes 18 % (20-55); Segmented Neutrophils 49 % (50-85); Total Cells Counted 100
[2018-08-28 21:05] LABS: Anisocytosis 2+; Hypochromasia 1+; Polychromasia Few
[2018-08-28 21:06] LABS: Ovalocytes 1+; Poikilocytosis 1+
[2018-08-28] MEDS ORDERED: ZALEPLON 5 MG CAPSULE PO PRN (21:47)
[2018-08-28] MEDS ORDERED: MORPHINE 4 MG/1 ML VIAL IV PRN (21:47)
[2018-08-28] MEDS ORDERED: NICOTINE 21 MG/24 HR PATCH TRANSDERM PRN (21:47)
[2018-08-28] MEDS ORDERED: SODIUM CHLORIDE 0.9% 1,000 ML IV PRN (21:47)
[2018-08-28] MEDS ORDERED: ONDANSETRON 4 MG/2 ML VIAL IV PRN (21:47)
[2018-08-28] MEDS ORDERED: diphenhydrAMINE CAP 25 MG CAPSULE PO PRN (21:47)
[2018-08-28] MEDS ORDERED: GLUCAGON 1 MG VIAL IM PRN (23:28)
[2018-08-28] MEDS ORDERED: DEXTROSE 50% 25 GM/50 ML SYRINGE IV PRN (23:28)
[2018-08-28] MEDS ORDERED: OCTREOTIDE 100 MCG/ML SYRINGE IV SCH (23:30)
[2018-08-28] MEDS ORDERED: OCTREOTIDE 100 MCG/ML SYRINGE IV ONE (23:30)
[2018-08-29] MEDS: OCTREOTIDE 500 MCG in SODIUM CHLORIDE 0.9% 100 ML IV SCH ×2 (00:36→09:39)
[2018-08-29] MEDS: cefTRIAXone 1,000 MG in SYRINGE 1 EACH IV SCH ×2 (01:02→23:50)
[2018-08-29 04:34] LABS: Basophils % 0.4 % (0.0-0.8); Eosinophils # 0.4 10*3/uL (0.0-0.87); Hematocrit 20.5 VOL% (42.0-52.0); Immature Granulocytes % 0.4 %; Immature Granulocytes Absolute 0.01 #; Lymphocytes # 0.6 10*3/uL (1.4-4.0); Mean Corpuscular HGB Conc 30.2 GM/DL (32-36); Mean Corpuscular Hemoglobin 27 PG (27-34); Mean Corpuscular Volume 89.5 FL (87-102); Mean Platelet Volume 12.3 FL (9.6-12.0); Monocytes # 0.3 10*3/uL (0.11-0.8); Neutrophils # 1.3 10*3/uL (1.4-7.4); Neutrophils % 51.2 % (38.7-73.9); Red Blood Count 2.29 MC/CUMM (3.8-5.5); Red Cell Distribution Width 17.9 % (9.3-17.3); White Blood Count 2.5 T/CUMM (4-12)
[2018-08-29 04:55] LABS: Bilirubin,Total 0.7 MG/DL (0.2-1.0); Calcium 7.8 MG/DL (8.5-10.1); Osmolality,Calculated 289.1 MOS/KG (273-304); Total Protein 5.7 G/DL (6.4-8.3)
[2018-08-29 05:23] LABS: Hemoglobin 6.2 GM/DL (14.0-18.0); Platelet Count 53 T/CUMM (130-400)
[2018-08-29 05:35] LABS: Band Neutrophils 7 % (0-10); Eosinophils 14 % (0-10); Lymphocytes 23 % (20-55); Platelet Estimate Decreased; Segmented Neutrophils 42 % (50-85); Total Cells Counted 100
[2018-08-29 05:41] LABS: Anisocytosis 1+; Hypochromasia 3+; Macrocytosis 1+
[2018-08-29 05:42] LABS: Acanthocytes Few; Ovalocytes Few; Target Cells 1+
[2018-08-29] MEDS: PANTOPRAZOLE 40 MG VIAL IV SCH ×2 (08:20→21:12)
[2018-08-29] MEDS: INSULIN REGULAR 100 UNIT/ML SUBCUT SCH ×4 (08:20→21:12)
[2018-08-29] MEDS ORDERED: PANTOPRAZOLE 40 MG TABLET PO SCH (09:00)
[2018-08-29 11:59] LABS: Hemoglobin 6.9 GM/DL (14.0-18.0)
[2018-08-29] MEDS ORDERED: FUROSEMIDE 20 MG/2 ML VIAL IV ONE (12:23)
[2018-08-29] MEDS ORDERED: CYANOCOBALAMIN 1000 MCG/1 ML VIAL IM SCH (13:30)
[2018-08-29] MEDS ORDERED: SODIUM CHLORIDE 0.9% 1,000 ML IV PRN (15:30)
[2018-08-29] MEDS ORDERED: LIOTHYRONINE SODIUM 5 MCG PO SCH (21:00)
[2018-08-29] MEDS: ATORVASTATIN 20 MG TABLET PO SCH (21:12)
[2018-08-29] MEDS: MAGNESIUM CHLORIDE 64 MG TABLET PO SCH (21:12)
[2018-08-30] MEDS: LEVOTHYROXINE 200 MCG TABLET PO SCH (05:48)
[2018-08-30 07:03] LABS: Basophils % 0.6 % (0.0-0.8); Eosinophils # 0.4 10*3/uL (0.0-0.87); Eosinophils % 11.9 % (0.00-10.9); Hematocrit 24.3 VOL% (42.0-52.0); Hemoglobin 7.2 GM/DL (14.0-18.0); Immature Granulocytes % 0.3 %; Immature Granulocytes Absolute 0.01 #; Lymphocytes # 0.6 10*3/uL (1.4-4.0); Lymphocytes % 18.5 % (21.2-54.2); Mean Corpuscular HGB Conc 29.6 GM/DL (32-36); Mean Corpuscular Hemoglobin 26 PG (27-34); Mean Corpuscular Volume 88.7 FL (87-102); Monocytes # 0.4 10*3/uL (0.11-0.8); Neutrophils # 1.8 10*3/uL (1.4-7.4); Neutrophils % 57.7 % (38.7-73.9); Red Blood Count 2.74 MC/CUMM (3.8-5.5); Red Cell Distribution Width 18.6 % (9.3-17.3); White Blood Count 3.2 T/CUMM (4-12)
[2018-08-30 07:04] LABS: Platelet Count 61 T/CUMM (130-400)
[2018-08-30 07:12] LABS: Eosinophils 12 % (0-10); Hypochromasia 1+; Lymphocytes 22 % (20-55); Ovalocytes Slight; Platelet Estimate Decreased; Segmented Neutrophils 62 % (50-85); Total Cells Counted 100
[2018-08-30 07:13] LABS: Macrocytosis Slight
[2018-08-30] MEDS: INSULIN REGULAR 100 UNIT/ML SUBCUT SCH ×4 (07:50→20:43)
[2018-08-30] MEDS ORDERED: PROPOFOL 200 MG/20 ML VIAL IV ONE (09:00)
[2018-08-30] MEDS ORDERED: LIDOCAINE 2% TOP JELLY 5 ML TUBE TOP ONE (09:00)
[2018-08-30] MEDS ORDERED: oxyCODONE/ACETAMINOPHEN 5-325 MG TABLET PO PRN (10:15)
[2018-08-30] MEDS ORDERED: FUROSEMIDE 20 MG/2 ML VIAL IV ONE (10:17)
[2018-08-30 10:28] LABS: Basophils % 0.3 % (0.0-0.8); Eosinophils # 0.4 10*3/uL (0.0-0.87); Eosinophils % 12.5 % (0.00-10.9); Hematocrit 23.8 VOL% (42.0-52.0); Hemoglobin 7.3 GM/DL (14.0-18.0); Immature Granulocytes % 0.3 %; Immature Granulocytes Absolute 0.01 #; Lymphocytes # 0.5 10*3/uL (1.4-4.0); Mean Corpuscular HGB Conc 30.7 GM/DL (32-36); Mean Corpuscular Hemoglobin 27 PG (27-34); Mean Corpuscular Volume 87.5 FL (87-102); Mean Platelet Volume 11.7 FL (9.6-12.0); Monocytes # 0.3 10*3/uL (0.11-0.8); Monocytes % 9.4 % (1.7-12.7); Neutrophils # 1.8 10*3/uL (1.4-7.4); Neutrophils % 61.5 % (38.7-73.9); Platelet Count 61 T/CUMM (130-400); Red Blood Count 2.72 MC/CUMM (3.8-5.5); Red Cell Distribution Width 18.5 % (9.3-17.3); White Blood Count 2.9 T/CUMM (4-12)
[2018-08-30 10:39] LABS: Eosinophils 12 % (0-10); Hypochromasia 1+; Lymphocytes 18 % (20-55); Macrocytosis Slight; Ovalocytes Slight; Platelet Estimate Decreased; Segmented Neutrophils 66 % (50-85); Total Cells Counted 100
[2018-08-30 10:59] LABS: Albumin 2.8 G/DL (3.4-5.0); Bilirubin,Total 0.6 MG/DL (0.2-1.0); Calcium 7.6 MG/DL (8.5-10.1); Osmolality,Calculated 288.1 MOS/KG (273-304); Potassium 3.7 MMOL/L (3.5-5.1); Total Protein 5.9 G/DL (6.4-8.3)
[2018-08-30] MEDS ORDERED: POTASSIUM CHLORIDE 10 MEQ TABLET PO ONE (11:03)
[2018-08-30] MEDS: PANTOPRAZOLE 40 MG VIAL IV SCH ×2 (12:35→20:40)
[2018-08-30] MEDS: CHOLECALCIFEROL 1,000 UNIT TABLET PO SCH (12:45)
[2018-08-30] MEDS: ASCORBIC ACID 500 MG TABLET PO SCH (12:45)
[2018-08-30] MEDS: ALLOPURINOL 300 MG TABLET PO SCH (12:46)
[2018-08-30] MEDS: MAGNESIUM CHLORIDE 64 MG TABLET PO SCH ×2 (12:46→20:39)
[2018-08-30] MEDS ORDERED: SODIUM CHLORIDE 0.9% 1,000 ML IV PRN (14:14)
[2018-08-30] MEDS: cefTRIAXone 2,000 MG in SYRINGE 1 EACH IV SCH (14:15)
[2018-08-30] MEDS: SPIRONOLACTONE 25 MG TABLET PO SCH ×2 (15:53→20:39)
[2018-08-30] MEDS: FUROSEMIDE 20 MG TABLET PO SCH (15:54)
[2018-08-30] MEDS: ATORVASTATIN 20 MG TABLET PO SCH (20:39)
[2018-08-30 20:40] LABS: Apearance,Urine CLEAR (Clear); Bilirubin,Urine Negative (Negative); Blood, Urine Negative (Negative); Glucose,Urine (UA) Negative (Negative); Ketones,Urine Negative (Negative); Nitrite,Urine Negative (Negative); Protein,Urine Negative; Squamous Epithelial Cell,Urine Occasional /HPF (0-10); Urine Color Yellow (Yellow); Urine Specific Gravity 1.016 (1.001-1.035); Urine Urobilinogen < 2.0 EU/DL (0.2-1.0); WBC,Urine <1 /HPF (0-6)
[2018-08-31 04:20] LABS: Basophils % 0.7 % (0.0-0.8); Eosinophils # 0.5 10*3/uL (0.0-0.87); Eosinophils % 15.2 % (0.00-10.9); Hematocrit 26.3 VOL% (42.0-52.0); Hemoglobin 7.7 GM/DL (14.0-18.0); Immature Granulocytes % 0.3 %; Immature Granulocytes Absolute 0.01 #; Lymphocytes # 0.8 10*3/uL (1.4-4.0); Lymphocytes % 26.9 % (21.2-54.2); Mean Corpuscular HGB Conc 29.3 GM/DL (32-36); Mean Corpuscular Hemoglobin 26 PG (27-34); Mean Corpuscular Volume 88.3 FL (87-102); Mean Platelet Volume 11.8 FL (9.6-12.0); Monocytes # 0.3 10*3/uL (0.11-0.8); Monocytes % 10.8 % (1.7-12.7); Neutrophils # 1.4 10*3/uL (1.4-7.4); Neutrophils % 46.1 % (38.7-73.9); Red Blood Count 2.98 MC/CUMM (3.8-5.5); Red Cell Distribution Width 18.2 % (9.3-17.3)
[2018-08-31 04:24] LABS: Platelet Count 65 T/CUMM (130-400)
[2018-08-31 05:13] LABS: Bilirubin,Total 0.5 MG/DL (0.2-1.0); Calcium 8.1 MG/DL (8.5-10.1); Potassium 3.6 MMOL/L (3.5-5.1)
[2018-08-31 05:30] LABS: Atypical Lymphocytes Few; Eosinophils 21 % (0-10); Hypochromasia 1+; Lymphocytes 17 % (20-55); Platelet Estimate Decreased; Polychromasia Few; Reactive Lymphocytes 1+; Segmented Neutrophils 55 % (50-85)
[2018-08-31 05:31] LABS: Ovalocytes 1+; Total Cells Counted 100
[2018-08-31] MEDS: LEVOTHYROXINE 200 MCG TABLET PO SCH (05:32)
[2018-08-31] MEDS: ALLOPURINOL 300 MG TABLET PO SCH (08:39)
[2018-08-31] MEDS: ASCORBIC ACID 500 MG TABLET PO SCH (08:39)
[2018-08-31] MEDS: SPIRONOLACTONE 25 MG TABLET PO SCH (08:39)
[2018-08-31] MEDS: CHOLECALCIFEROL 1,000 UNIT TABLET PO SCH (08:39)
[2018-08-31] MEDS: MAGNESIUM CHLORIDE 64 MG TABLET PO SCH (08:40)
[2018-08-31] MEDS: FUROSEMIDE 20 MG TABLET PO SCH ×2 (08:40→16:52)
[2018-08-31] MEDS: INSULIN REGULAR 100 UNIT/ML SUBCUT SCH ×3 (08:41→16:52)
[2018-08-31] MEDS: PANTOPRAZOLE 40 MG VIAL IV SCH (08:41)
[2018-08-31] MEDS: cefTRIAXone 2,000 MG in SYRINGE 1 EACH IV SCH (11:40)
[2018-08-31 12:38] LABS: Basophils % 0.6 % (0.0-0.8); Eosinophils # 0.5 10*3/uL (0.0-0.87); Eosinophils % 14.7 % (0.00-10.9); Hematocrit 27.2 VOL% (42.0-52.0); Hemoglobin 8.3 GM/DL (14.0-18.0); Immature Granulocytes % 0.3 %; Immature Granulocytes Absolute 0.01 #; Lymphocytes # 0.7 10*3/uL (1.4-4.0); Lymphocytes % 21.3 % (21.2-54.2); Mean Corpuscular HGB Conc 30.5 GM/DL (32-36); Mean Corpuscular Hemoglobin 27 PG (27-34); Mean Corpuscular Volume 87.5 FL (87-102); Monocytes # 0.3 10*3/uL (0.11-0.8); Neutrophils # 1.8 10*3/uL (1.4-7.4); Neutrophils % 54.1 % (38.7-73.9); Platelet Count 73 T/CUMM (130-400); Red Blood Count 3.11 MC/CUMM (3.8-5.5); White Blood Count 3.3 T/CUMM (4-12)
[2018-08-31 13:02] LABS: Band Neutrophils 2 % (0-10); Eosinophils 15 % (0-10); Lymphocytes 25 % (20-55); Segmented Neutrophils 51 % (50-85); Total Cells Counted 100
[2018-08-31 13:03] LABS: Hypochromasia 1+; Microcytosis 1+; Ovalocytes Slight; Platelet Estimate Decreased
[2018-08-31 13:41] VITALS: BP 118/57
== END 2018-08-31 17:50 | disposition home or self-care (01) | DRG 378 ==
LOC: N.ED 17:39 → N.EDINP 21:47 → SUATTDRO 21:47 → N.2E 22:36 → N.CC 23:18 → N.4E 08-29 17:26
PROVIDERS: ADMIT Internal Medicine; ATTEND Internal Medicine

== ENCOUNTER 2018-09-04 05:53 | Inpatient (IN) ==
[2018-09-04] MEDS ORDERED: SODIUM CHLORIDE 0.9% 500 ML IV STA (06:22)
[2018-09-04 06:44] LABS: Basophils % 0.4 % (0.0-0.8); Eosinophils # 0.4 10*3/uL (0.0-0.87); Eosinophils % 15.5 % (0.00-10.9); Hematocrit 24.5 VOL% (42.0-52.0); Immature Granulocytes % 0.4 %; Immature Granulocytes Absolute 0.01 #; Lymphocytes # 0.6 10*3/uL (1.4-4.0); Lymphocytes % 21.3 % (21.2-54.2); Mean Corpuscular HGB Conc 29.4 GM/DL (32-36); Mean Corpuscular Hemoglobin 26 PG (27-34); Mean Corpuscular Volume 87.8 FL (87-102); Monocytes # 0.3 10*3/uL (0.11-0.8); Monocytes % 10.1 % (1.7-12.7); Neutrophils # 1.4 10*3/uL (1.4-7.4); Neutrophils % 52.3 % (38.7-73.9); Red Blood Count 2.79 MC/CUMM (3.8-5.5); Red Cell Distribution Width 17.5 % (9.3-17.3); White Blood Count 2.6 T/CUMM (4-12)
[2018-09-04 06:46] LABS: Hemoglobin 7.2 GM/DL (14.0-18.0); Platelet Count 64 T/CUMM (130-400)
[2018-09-04 06:53] LABS: INR 1.1; PT Patient Result 11.5 SECS
[2018-09-04 07:10] LABS: Anisocytosis Slight; Band Neutrophils 13 % (0-10); Bilirubin,Total 0.5 MG/DL (0.2-1.0); Calcium 8.1 MG/DL (8.5-10.1); Eosinophils 16 % (0-10); Hypochromasia Slight; Lymphocytes 19 % (20-55); Platelet Estimate Decreased; Potassium 3.9 MMOL/L (3.5-5.1); Segmented Neutrophils 41 % (50-85); Total Cells Counted 100
[2018-09-04] MEDS ORDERED: ONDANSETRON 4 MG/2 ML VIAL IV PRN (08:24)
[2018-09-04] MEDS ORDERED: ACETAMINOPHEN 325 MG TABLET PO PRN (08:24)
[2018-09-04] MEDS ORDERED: SODIUM CHLORIDE 0.9% 1,000 ML IV PRN (08:30)
[2018-09-04] MEDS: PANTOPRAZOLE 40 MG TABLET PO SCH (09:56)
[2018-09-04] MEDS: SODIUM CHLORIDE 0.9% 1,000 ML IV SCH (09:58)
[2018-09-04] MEDS ORDERED: GLUCAGON 1 MG VIAL IM PRN (11:43)
[2018-09-04] MEDS ORDERED: DEXTROSE 50% 25 GM/50 ML VIAL IV PRN (11:43)
[2018-09-04] MEDS ORDERED: LIOTHYRONINE SODIUM 5 MCG PO SCH (19:00)
[2018-09-04] MEDS: ATORVASTATIN 20 MG TABLET PO SCH (20:26)
[2018-09-04] MEDS: INSULIN LISPRO 100 UNIT/ML SUBCUT SCH ×2 (22:38→22:39)
[2018-09-04 22:55] LABS: Hematocrit 26.7 VOL% (42.0-52.0); Hemoglobin 8.1 GM/DL (14.0-18.0)
[2018-09-05] MEDS: SODIUM CHLORIDE 0.9% 1,000 ML IV SCH (02:32)
[2018-09-05 06:21] LABS: Basophils % 0.4 % (0.0-0.8); Eosinophils # 0.4 10*3/uL (0.0-0.87); Eosinophils % 17.1 % (0.00-10.9); Hematocrit 27.3 VOL% (42.0-52.0); Hemoglobin 8.1 GM/DL (14.0-18.0); Immature Granulocytes % 0.4 %; Immature Granulocytes Absolute 0.01 #; Lymphocytes # 0.6 10*3/uL (1.4-4.0); Lymphocytes % 26.1 % (21.2-54.2); Mean Corpuscular HGB Conc 29.7 GM/DL (32-36); Mean Corpuscular Hemoglobin 26 PG (27-34); Mean Corpuscular Volume 87.8 FL (87-102); Monocytes # 0.3 10*3/uL (0.11-0.8); Monocytes % 12.2 % (1.7-12.7); Neutrophils # 1.1 10*3/uL (1.4-7.4); Neutrophils % 43.8 % (38.7-73.9); Red Blood Count 3.11 MC/CUMM (3.8-5.5); Red Cell Distribution Width 17.2 % (9.3-17.3); White Blood Count 2.5 T/CUMM (4-12)
[2018-09-05 06:28] LABS: Platelet Count 62 T/CUMM (130-400)
[2018-09-05 06:34] LABS: Albumin 2.9 G/DL (3.4-5.0); Bilirubin,Total 0.8 MG/DL (0.2-1.0); Potassium 3.6 MMOL/L (3.5-5.1)
[2018-09-05 06:49] LABS: Eosinophils 20 % (0-10); Hypochromasia 1+; Lymphocytes 27 % (20-55); Ovalocytes Slight; Platelet Estimate Decreased; Segmented Neutrophils 41 % (50-85); Total Cells Counted 100
[2018-09-05 06:50] LABS: Microcytosis Slight
[2018-09-05] MEDS ORDERED: GLUCAGON 1 MG VIAL IM PRN (08:17)
[2018-09-05] MEDS ORDERED: DEXTROSE 50% 25 GM/50 ML VIAL IV PRN (08:17)
[2018-09-05] MEDS ORDERED: LIOTHYRONINE SODIUM 10 MCG PO SCH (09:00)
[2018-09-05] MEDS: POTASSIUM CHLORIDE 20 MEQ TABLET PO SCH (09:06)
[2018-09-05] MEDS: FUROSEMIDE 40 MG TABLET PO SCH (09:06)
[2018-09-05] MEDS: PANTOPRAZOLE 40 MG TABLET PO SCH (09:06)
[2018-09-05] MEDS: INSULIN LISPRO 100 UNIT/ML SUBCUT SCH (09:08)
[2018-09-05] MEDS ORDERED: SODIUM CHLORIDE 0.9% 1,000 ML IV PRN ×2 (09:35→14:44)
[2018-09-05] MEDS ORDERED: LIOTHYRONINE SODIUM 5 MCG PO SCH (19:00)
[2018-09-05] MEDS: ATORVASTATIN 20 MG TABLET PO SCH (23:49)
[2018-09-06] MEDS: INSULIN LISPRO 100 UNIT/ML SUBCUT SCH ×5 (02:43→13:08)
[2018-09-06 03:18] LABS: Basophils % 0.7 % (0.0-0.8); Eosinophils # 0.4 10*3/uL (0.0-0.87); Hematocrit 29.1 VOL% (42.0-52.0); Hemoglobin 8.7 GM/DL (14.0-18.0); Hemoglobin 8.8 GM/DL (14.0-18.0); Immature Granulocytes Absolute 0.03 #; Lymphocytes # 0.6 10*3/uL (1.4-4.0); Lymphocytes % 21.9 % (21.2-54.2); Mean Corpuscular HGB Conc 30.2 GM/DL (32-36); Mean Corpuscular Hemoglobin 27 PG (27-34); Mean Corpuscular Volume 88.2 FL (87-102); Mean Platelet Volume 11.9 FL (9.6-12.0); Monocytes # 0.3 10*3/uL (0.11-0.8); Neutrophils # 1.5 10*3/uL (1.4-7.4); Neutrophils % 51.4 % (38.7-73.9); Platelet Count 66 T/CUMM (130-400); Red Cell Distribution Width 17.3 % (9.3-17.3); White Blood Count 2.9 T/CUMM (4-12)
[2018-09-06 03:41] LABS: Calcium 7.6 MG/DL (8.5-10.1); Potassium 3.7 MMOL/L (3.5-5.1)
[2018-09-06 07:52] LABS: Eosinophils 17 % (0-10); Hypochromasia 1+; Lymphocytes 23 % (20-55); Microcytosis 1+; Segmented Neutrophils 51 % (50-85); Total Cells Counted 100
[2018-09-06 07:53] LABS: Ovalocytes Few; Platelet Estimate Decreased
[2018-09-06 07:55] VITALS: BP 120/64
[2018-09-06] MEDS ORDERED: LIOTHYRONINE SODIUM 10 MCG PO SCH (09:00)
[2018-09-06] MEDS: POTASSIUM CHLORIDE 20 MEQ TABLET PO SCH (09:21)
[2018-09-06] MEDS: FUROSEMIDE 40 MG TABLET PO SCH (09:21)
[2018-09-06] MEDS: PANTOPRAZOLE 40 MG TABLET PO SCH (11:31)
== END 2018-09-06 14:45 | disposition home or self-care (01) | DRG 378 ==
LOC: N.ED 05:53 → N.EDINP 08:15 → N.2W 08:39 → N.5E 10:40
PROVIDERS: ADMIT Internal Medicine; ATTEND Internal Medicine

== ENCOUNTER 2018-09-29 11:15 | Inpatient (IN) ==
[2018-09-29] MEDS ORDERED: PANTOPRAZOLE 40 MG VIAL IV STA (13:31)
[2018-09-29 14:16] LABS: Basophils % 0.3 % (0.0-0.8); Eosinophils # 0.2 10*3/uL (0.0-0.87); Eosinophils % 6.1 % (0.00-10.9); Immature Granulocytes Absolute 0.03 #; Lymphocytes # 0.6 10*3/uL (1.4-4.0); Lymphocytes % 20.1 % (21.2-54.2); Mean Corpuscular Hemoglobin 28 PG (27-34); Mean Corpuscular Volume 94.6 FL (87-102); Mean Platelet Volume 12.1 FL (9.6-12.0); Monocytes # 0.4 10*3/uL (0.11-0.8); Monocytes % 11.1 % (1.7-12.7); Neutrophils # 1.9 10*3/uL (1.4-7.4); Neutrophils % 61.4 % (38.7-73.9); Platelet Count 72 T/CUMM (130-400); Red Blood Count 2.22 MC/CUMM (3.8-5.5); Red Cell Distribution Width 21.5 % (9.3-17.3); White Blood Count 3.1 T/CUMM (4-12)
[2018-09-29 14:18] LABS: Hemoglobin 6.3 GM/DL (14.0-18.0)
[2018-09-29 14:23] LABS: PT Patient Result 10.7 SECS; Partial Thromboplastin Time 24.3 SECS (0-40)
[2018-09-29] MEDS ORDERED: SODIUM CHLORIDE 0.9% 1,000 ML IV PRN (14:38)
[2018-09-29] MEDS ORDERED: SODIUM CHLORIDE 0.9% 500 ML IV STA (14:38)
[2018-09-29 14:39] LABS: Albumin 2.8 G/DL (3.4-5.0); Bilirubin,Total 0.5 MG/DL (0.2-1.0); Calcium 8.1 MG/DL (8.5-10.1); Osmolality,Calculated 285.5 MOS/KG (273-304); Potassium 3.8 MMOL/L (3.5-5.1); Total Protein 5.9 G/DL (6.4-8.3)
[2018-09-29] MEDS ORDERED: PROMETHAZINE 25 MG/1 ML VIAL IM PRN (14:41)
[2018-09-29] MEDS ORDERED: ONDANSETRON 4 MG/2 ML VIAL IV PRN (14:41)
[2018-09-29 14:42] LABS: Anisocytosis 1+
[2018-09-29 14:43] LABS: Hypochromasia 1+; Microcytosis 1+; Tear Drop Cells Few
[2018-09-29 14:44] LABS: Elliptocytes Few; Platelet Estimate Decreased
[2018-09-29] MEDS ORDERED: GLUCAGON 1 MG VIAL IM PRN (14:45)
[2018-09-29] MEDS ORDERED: DEXTROSE 50% 25 GM/50 ML SYRINGE IV PRN (14:45)
[2018-09-29] MEDS ORDERED: SODIUM CHLORIDE 0.9% 1,000 ML IV SCH (15:00)
[2018-09-29] MEDS: INSULIN LISPRO 100 UNIT/ML SUBCUT SCH ×2 (17:57→20:40)
[2018-09-29] MEDS: PANTOPRAZOLE 40 MG VIAL IV SCH (20:36)
[2018-09-29] MEDS: MAGNESIUM CHLORIDE 64 MG TABLET PO SCH (20:37)
[2018-09-29] MEDS: ATORVASTATIN 20 MG TABLET PO SCH (20:38)
[2018-09-29] MEDS: INSULIN GLARGINE 100 UNIT/ML SUBCUT SCH (20:40)
[2018-09-29] MEDS ORDERED: LIOTHYRONINE SODIUM 5 MCG PO SCH (21:00)
[2018-09-30 04:58] LABS: Basophils % 0.4 % (0.0-0.8); Eosinophils # 0.1 10*3/uL (0.0-0.87); Eosinophils % 5.1 % (0.00-10.9); Hematocrit 21.5 VOL% (42.0-52.0); Immature Granulocytes % 0.8 %; Immature Granulocytes Absolute 0.02 #; Lymphocytes # 0.7 10*3/uL (1.4-4.0); Lymphocytes % 26.8 % (21.2-54.2); Mean Corpuscular HGB Conc 29.3 GM/DL (32-36); Mean Corpuscular Hemoglobin 28 PG (27-34); Mean Corpuscular Volume 93.9 FL (87-102); Mean Platelet Volume 12.8 FL (9.6-12.0); Monocytes # 0.3 10*3/uL (0.11-0.8); Monocytes % 10.9 % (1.7-12.7); Neutrophils # 1.4 10*3/uL (1.4-7.4); Platelet Count 67 T/CUMM (130-400); Red Blood Count 2.29 MC/CUMM (3.8-5.5); Red Cell Distribution Width 20.4 % (9.3-17.3); White Blood Count 2.6 T/CUMM (4-12)
[2018-09-30 05:07] LABS: Hemoglobin 6.4 GM/DL (14.0-18.0)
[2018-09-30 05:24] LABS: Albumin 2.5 G/DL (3.4-5.0); Bilirubin,Total 1.4 MG/DL (0.2-1.0); Calcium 7.6 MG/DL (8.5-10.1); Osmolality,Calculated 284.1 MOS/KG (273-304); Potassium 3.5 MMOL/L (3.5-5.1); Risk Ratio 2.52; Thyroid Stimulating Hormone 4.74 uIU/ml (0.358-3.74); Total Protein 5.3 G/DL (6.4-8.3); VLDL CHOLESTEROL 24.8 MG/DL
[2018-09-30 05:44] LABS: Hematocrit 21.4 VOL% (42.0-52.0); Hemoglobin 6.5 GM/DL (14.0-18.0)
[2018-09-30 05:45] LABS: Platelet Estimate Decreased; Polychromasia Few
[2018-09-30] MEDS: LEVOTHYROXINE 200 MCG TABLET PO SCH (06:15)
[2018-09-30] MEDS: INSULIN LISPRO 100 UNIT/ML SUBCUT SCH ×4 (08:30→20:47)
[2018-09-30] MEDS ORDERED: LIOTHYRONINE SODIUM 10 MCG PO SCH (09:00)
[2018-09-30] MEDS ORDERED: CYANOCOBALAMIN 1000 MCG/1 ML VIAL IM SCH (09:00)
[2018-09-30] MEDS ORDERED: ERGOCALCIFEROL 50,000 UNIT CAPSULE PO SCH (09:00)
[2018-09-30] MEDS: PANTOPRAZOLE 40 MG VIAL IV SCH ×2 (10:03→20:47)
[2018-09-30] MEDS: LOSARTAN 25 MG TABLET PO SCH (13:37)
[2018-09-30] MEDS: FUROSEMIDE 40 MG TABLET PO SCH (13:37)
[2018-09-30] MEDS: ALLOPURINOL 300 MG TABLET PO SCH (13:37)
[2018-09-30] MEDS: POTASSIUM CHLORIDE 20 MEQ TABLET PO SCH (13:37)
[2018-09-30] MEDS: MAGNESIUM CHLORIDE 64 MG TABLET PO SCH ×2 (13:37→20:46)
[2018-09-30] MEDS: ASCORBIC ACID 500 MG TABLET PO SCH (13:37)
[2018-09-30] MEDS: ATORVASTATIN 20 MG TABLET PO SCH (20:46)
[2018-09-30] MEDS: INSULIN GLARGINE 100 UNIT/ML SUBCUT SCH (20:47)
[2018-10-01] MEDS: LEVOTHYROXINE 200 MCG TABLET PO SCH (06:06)
[2018-10-01 08:08] LABS: Hematocrit 23.4 VOL% (42.0-52.0); Hemoglobin 7.1 GM/DL (14.0-18.0)
[2018-10-01] MEDS: INSULIN LISPRO 100 UNIT/ML SUBCUT SCH ×4 (09:28→21:29)
[2018-10-01] MEDS: FUROSEMIDE 40 MG TABLET PO SCH (09:29)
[2018-10-01] MEDS: MAGNESIUM CHLORIDE 64 MG TABLET PO SCH ×2 (09:29→21:29)
[2018-10-01] MEDS: ALLOPURINOL 300 MG TABLET PO SCH (09:29)
[2018-10-01] MEDS: ASCORBIC ACID 500 MG TABLET PO SCH (09:29)
[2018-10-01] MEDS: LOSARTAN 25 MG TABLET PO SCH (09:30)
[2018-10-01] MEDS: POTASSIUM CHLORIDE 20 MEQ TABLET PO SCH (09:30)
[2018-10-01] MEDS: PANTOPRAZOLE 40 MG VIAL IV SCH ×2 (09:30→21:30)
[2018-10-01] MEDS ORDERED: SODIUM CHLORIDE 0.9% 1,000 ML IV PRN (09:49)
[2018-10-01 10:41] LABS: Hematocrit 25.8 VOL% (42.0-52.0); Hemoglobin 7.7 GM/DL (14.0-18.0)
[2018-10-01 17:26] LABS: Hematocrit 26.1 VOL% (42.0-52.0); Hemoglobin 7.9 GM/DL (14.0-18.0)
[2018-10-01] MEDS: ATORVASTATIN 20 MG TABLET PO SCH (21:29)
[2018-10-01] MEDS: INSULIN GLARGINE 100 UNIT/ML SUBCUT SCH (21:29)
[2018-10-01 23:44] LABS: Hematocrit 24.6 VOL% (42.0-52.0); Hemoglobin 7.6 GM/DL (14.0-18.0)
[2018-10-02 05:11] LABS: Albumin 2.6 G/DL (3.4-5.0); Bilirubin,Total 0.6 MG/DL (0.2-1.0); Calcium 7.9 MG/DL (8.5-10.1); Osmolality,Calculated 283.3 MOS/KG (273-304); Potassium 3.7 MMOL/L (3.5-5.1); Total Protein 5.6 G/DL (6.4-8.3)
[2018-10-02 05:15] LABS: Basophils % 0.3 % (0.0-0.8); Eosinophils # 0.2 10*3/uL (0.0-0.87); Eosinophils % 6.6 % (0.00-10.9); Hematocrit 26.4 VOL% (42.0-52.0); Hemoglobin 7.9 GM/DL (14.0-18.0); Immature Granulocytes % 0.3 %; Immature Granulocytes Absolute 0.01 #; Lymphocytes # 0.6 10*3/uL (1.4-4.0); Lymphocytes % 19.2 % (21.2-54.2); Mean Corpuscular HGB Conc 29.9 GM/DL (32-36); Mean Corpuscular Hemoglobin 28 PG (27-34); Mean Corpuscular Volume 93.3 FL (87-102); Monocytes # 0.4 10*3/uL (0.11-0.8); Monocytes % 12.5 % (1.7-12.7); Neutrophils # 1.8 10*3/uL (1.4-7.4); Neutrophils % 61.1 % (38.7-73.9); Red Blood Count 2.83 MC/CUMM (3.8-5.5); Red Cell Distribution Width 19.1 % (9.3-17.3); White Blood Count 2.9 T/CUMM (4-12)
[2018-10-02 05:21] LABS: Platelet Count 67 T/CUMM (130-400)
[2018-10-02 05:46] LABS: Hypochromasia 1+; Ovalocytes Slight; Platelet Estimate Decreased
[2018-10-02 05:47] LABS: Microcytosis Slight
[2018-10-02] MEDS: LEVOTHYROXINE 200 MCG TABLET PO SCH (06:03)
[2018-10-02] MEDS: ALLOPURINOL 300 MG TABLET PO SCH (08:36)
[2018-10-02] MEDS: FUROSEMIDE 40 MG TABLET PO SCH (08:36)
[2018-10-02] MEDS: POTASSIUM CHLORIDE 20 MEQ TABLET PO SCH (08:36)
[2018-10-02] MEDS: MAGNESIUM CHLORIDE 64 MG TABLET PO SCH (08:36)
[2018-10-02] MEDS: ASCORBIC ACID 500 MG TABLET PO SCH (08:36)
[2018-10-02] MEDS: LOSARTAN 25 MG TABLET PO SCH (08:36)
[2018-10-02] MEDS: PANTOPRAZOLE 40 MG VIAL IV SCH (08:37)
[2018-10-02] MEDS: INSULIN LISPRO 100 UNIT/ML SUBCUT SCH ×3 (08:37→16:15)
[2018-10-02 20:54] LABS: Hematocrit 28.9 VOL% (42.0-52.0); Hemoglobin 8.7 GM/DL (14.0-18.0)
[2018-10-02 21:33] VITALS: BP 130/69
== END 2018-10-02 21:20 | disposition home or self-care (01) | DRG 808 ==
LOC: N.ED 11:15 → N.EDINP 14:41 → SUATTDRO 14:41 → N.4E 15:14
PROVIDERS: ADMIT Internal Medicine Geriatric Medicine; ATTEND Internal Medicine